=== PATIENT | male | born 1995 | race Caucasian/White ===

== ENCOUNTER 2017-06-27 20:39 | Emergency (ER) | payer OTHER ==
[~2017-06-27] VITALS: Ht 180.3 cm; Wt 125.9 kg
[~2017-06-27 20:39] MED LIST: BACTRIM,SEPT1 TABLET PO
[2017-06-27 20:55] LABS: HEMATOCRIT 45.3 % (38.0-50.0); MCH 28.7 PG (29.0-34.0); MCHC 34.4 G/DL (30.0-36.0); MCV 83.3 FL (86-99); MEAN PLAT.VOLUME 11.4 uM^3 (9.0-12.4); PLATELET COUNT 155 K/uL (156-360); RBC DIS.WIDTH-CV 13.4 % (11.8-14.6); RBC DIS.WIDTH-SD 40.9 % (39-53); RED BLOOD COUNT 5.44 M/uL (4.00-5.50); WHITE BLOOD COUNT 7.8 K/uL (4.1-10.2)
[2017-06-27 21:02] LABS: CHLORIDE 107 mEq/L (99-109); SODIUM 139 mEq/L (136-147)
[2017-06-27 21:05] LABS: GLUCOSE 99 mg/dL (70-99)
[2017-06-27 21:06] LABS: ANION GAP 5 MEQ/L (2-14)
[2017-06-27 21:07] LABS: TOTAL BILIRUBIN 0.6 mg/dL (0.0-1.0)
[2017-06-27 21:08] LABS: ALKALINE PHOSPHATASE 54 IU/L (3-129); GFR ESTIMATE (CALCULATED) > 59 mL/min/
[2017-06-27 21:09] LABS: UREA NITROGEN (BUN) 10 mg/dL (9-23)
[2017-06-27] MEDS ORDERED: ZOFRAN ODT4 MG PO (22:23)
[2017-06-27 22:42] VITALS: BP 119/75
== END 2017-06-27 22:42 | disposition home or self-care (01) ==
LOC: EME 20:39
DX: T61.8X1A Toxic effect of other seafood, accidental (unintentional), initial encounter (principal); R11.2 Nausea with vomiting, unspecified; F17.200 Nicotine dependence, unspecified, uncomplicated
CPT/HCPCS: 80053; 81003; 85027; 99281; 99283; J2405; J7030; S0028

== ENCOUNTER 2017-07-10 15:35 | Emergency (ER) | payer OTHER ==
[~2017-07-10] VITALS: Ht 180.3 cm; Wt 122.2 kg
[~2017-07-10 15:35] MED LIST changes: +ZOFRAN ODT4 MG PO
[2017-07-10] MEDS ORDERED: VENTOLIN HFA18 GM IH (16:51)
[2017-07-10] MEDS ORDERED: PREDNISONE20 MG PO (16:51)
[2017-07-10 17:02] VITALS: BP 113/71
== END 2017-07-10 17:03 | disposition home or self-care (01) ==
LOC: EME 15:35
DX: J40 Bronchitis, not specified as acute or chronic (principal); Z88.1 Allergy status to other antibiotic agents; F17.200 Nicotine dependence, unspecified, uncomplicated
CPT/HCPCS: 99281; 99282

== ENCOUNTER 2017-10-23 14:49 | Emergency (ER) | payer OTHER ==
[~2017-10-23] VITALS: Ht 180.3 cm; Wt 115.3 kg
[~2017-10-23 14:49] MED LIST changes: +PREDNISONE20 MG PO; +VENTOLIN HFA18 GM IH
[2017-10-23 17:45] VITALS: BP 121/58
== END 2017-10-23 17:45 | disposition home or self-care (01) ==
LOC: EME 14:49
DX: J10.1 Influenza due to other identified influenza virus with other respiratory manifestations (principal); F17.200 Nicotine dependence, unspecified, uncomplicated; Z88.0 Allergy status to penicillin; Z88.1 Allergy status to other antibiotic agents
CPT/HCPCS: 87502; 99281; 99284